=== PATIENT | male | born 1990 | race Caucasian/White ===

== ENCOUNTER 2018-11-01 12:09 | Emergency (ER) | payer MEDICAID ==
[~2018-11-01] VITALS: Ht 180.3 cm; Wt 61.4 kg
[~2018-11-01 12:09] MED LIST: LITH300C PO; METH4TAB3 PO; METH500T PO
[2018-11-01 12:49] VITALS: BP 129/81
[2018-11-01] MEDS ORDERED: LIDOcaine 1% w/epiNEPHrine 1:200,000 30ml vial IJ ONE (13:00)
[2018-11-01] MEDS ORDERED: LIDOcaine 1.5% w/epinephrine 1:200,000 5ml ampul IJ ONE (13:00)
[2018-11-01] MEDS ORDERED: MUPI22OI30 TOP (13:19)
[2018-11-01] MEDS ORDERED: DOXY100C43 PO (13:19)
== END 2018-11-01 13:25 | disposition home or self-care (01) ==
LOC: ER 12:10
DX: L98.8 Other specified disorders of the skin and subcutaneous tissue (principal); G89.29 Other chronic pain; F17.200 Nicotine dependence, unspecified, uncomplicated; F12.90 Cannabis use, unspecified, uncomplicated; Z59.0 Homelessness; Z56.0 Unemployment, unspecified; Z88.5 Allergy status to narcotic agent; Z88.8 Allergy status to other drugs, medicaments and biological substances; Z79.899 Other long term (current) drug therapy
CPT/HCPCS: 99283; J3490

== ENCOUNTER 2019-07-28 13:18 | Emergency (ER) | payer MEDICAID ==
[~2019-07-28] VITALS: Ht 181.6 cm; Wt 54.5 kg
[2019-07-28] MEDS ORDERED: HYDR-4353 PO (14:30)
[2019-07-28] MEDS ORDERED: IBUP-1986 PO (14:30)
[2019-07-28] MEDS ORDERED: ORPH100T2 PO (14:30)
[2019-07-28 15:14] VITALS: BP 123/72
== END 2019-07-28 14:50 | disposition home or self-care (01) ==
LOC: ER 13:19
DX: M54.16 Radiculopathy, lumbar region (principal); G89.29 Other chronic pain; F12.90 Cannabis use, unspecified, uncomplicated; Z59.0 Homelessness; Z56.0 Unemployment, unspecified; Z88.5 Allergy status to narcotic agent; Z79.899 Other long term (current) drug therapy
CPT/HCPCS: 99283

== ENCOUNTER 2019-09-17 11:27 | Emergency (ER) | payer MEDICAID ==
[~2019-09-17] VITALS: Ht 182.9 cm; Wt 57.0 kg
[~2019-09-17 11:27] MED LIST changes: +IBUP-1986 PO; +ORPH100T2 PO
[2019-09-17 11:35] VITALS: BP 115/75
[2019-09-17] MEDS ORDERED: ketorolac trometh inj. 60 MG/2 ML VIAL IM ONE (12:10)
[2019-09-17] MEDS ORDERED: LIDOcaine 5% patch TP ONE (12:10)
[2019-09-17] MEDS ORDERED: acetaminophen 325mg tablet PO ONE (12:10)
[2019-09-17] MEDS ORDERED: LIDO700A32 TOP (12:14)
== END 2019-09-17 12:49 | disposition home or self-care (01) ==
LOC: ER 11:28
DX: R07.81 Pleurodynia (principal); R05 Cough; G89.29 Other chronic pain; F41.9 Anxiety disorder, unspecified; F20.9 Schizophrenia, unspecified; F12.90 Cannabis use, unspecified, uncomplicated; Z60.2 Problems related to living alone; Z59.0 Homelessness; Z56.0 Unemployment, unspecified; Z88.5 Allergy status to narcotic agent; Z91.02 Food additives allergy status; Z79.899 Other long term (current) drug therapy
CPT/HCPCS: 71045; 96372; 99283; J1885

== ENCOUNTER 2020-01-19 22:30 | Emergency (ER) | payer MEDICAID ==
[~2020-01-19] VITALS: Ht 175.3 cm; Wt 48.5 kg
[~2020-01-19 22:30] MED LIST changes: +LIDO700A32 TOP
[2020-01-19 22:36] VITALS: BP 121/84
== END 2020-01-20 00:56 | disposition left against medical advice (07) ==
LOC: ER 22:31
DX: Z00.8 Encounter for other general examination (principal); Z53.21 Procedure and treatment not carried out due to patient leaving prior to being seen by health care provider

== ENCOUNTER 2020-05-06 16:01 | Emergency (ER) | payer MEDICAID ==
[~2020-05-06] VITALS: Ht 175.3 cm; Wt 59.0 kg
[2020-05-06 16:10] VITALS: BP 135/93
--- NOTE | 2020-05-06 16:37 | NUR ---
Patient seen and assessed by provider
== END 2020-05-06 16:39 | disposition home or self-care (01) ==
LOC: ER 16:02
DX: R19.7 Diarrhea, unspecified (principal); R53.83 Other fatigue; R53.1 Weakness; Z20.828 Contact with and (suspected) exposure to other viral communicable diseases; G89.29 Other chronic pain; F41.9 Anxiety disorder, unspecified; F20.9 Schizophrenia, unspecified; F12.90 Cannabis use, unspecified, uncomplicated; Z60.2 Problems related to living alone; Z56.0 Unemployment, unspecified; Z59.0 Homelessness; Z88.5 Allergy status to narcotic agent; Z88.8 Allergy status to other drugs, medicaments and biological substances; Z91.09 Other allergy status, other than to drugs and biological substances; Z79.899 Other long term (current) drug therapy
CPT/HCPCS: 36415; 99283; U0003

== ENCOUNTER 2020-08-31 20:28 | Emergency (ER) | payer MEDICAID ==
[~2020-08-31] VITALS: Ht 180.3 cm; Wt 53.6 kg
[2020-08-31 20:32] VITALS: BP 120/82
[2020-08-31] MEDS ORDERED: acetaminophen 325mg tablet PO ONE (21:10)
[2020-08-31] MEDS ORDERED: aspirin 325mg tablet PO ONE (21:10)
[2020-08-31] MEDS ORDERED: ketorolac trometh inj. 60 MG/2 ML VIAL IM ONE (21:10)
[2020-08-31] MEDS ORDERED: SUMAtriptan succ. 6 MG/0.5ml vial SQ ONE (21:10)
[2020-08-31] MEDS ORDERED: proCHLORperazine 10 MG/2 ml inj IM ONE (21:10)
[2020-08-31] MEDS ORDERED: ACET-812 PO (21:16)
[2020-08-31] MEDS ORDERED: PROC-8 PO (21:16)
[2020-08-31] MEDS ORDERED: SUMA100T PO (21:16)
== END 2020-08-31 21:49 | disposition home or self-care (01) ==
LOC: ER 20:29
DX: R51.9 Headache, unspecified (principal); R11.0 Nausea; H53.8 Other visual disturbances; G89.29 Other chronic pain; F41.9 Anxiety disorder, unspecified; F20.9 Schizophrenia, unspecified; F12.90 Cannabis use, unspecified, uncomplicated; Z60.2 Problems related to living alone; Z56.0 Unemployment, unspecified; Z59.0 Homelessness; Z88.5 Allergy status to narcotic agent; Z88.8 Allergy status to other drugs, medicaments and biological substances; Z91.018 Allergy to other foods; Z79.899 Other long term (current) drug therapy
CPT/HCPCS: 96372; 99284; J0780; J1885; J3030

== ENCOUNTER 2020-09-14 15:33 | Emergency (ER) | payer MEDICAID ==
[~2020-09-14] VITALS: Ht 180.3 cm; Wt 53.9 kg
[~2020-09-14 15:33] MED LIST changes: +ACET-812 PO; +PROC-8 PO; +SUMA100T PO
[2020-09-14 15:37] VITALS: BP 126/83
[2020-09-14] MEDS ORDERED: ketorolac tromethamine 15mg/ml inj. IM ONE (16:15)
--- NOTE | 2020-09-14 16:36 | NUR ---
Pt speaking with [place] police at this time
[2020-09-14] MEDS ORDERED: IBUP-1985 PO (16:42)
== END 2020-09-14 17:08 | disposition home or self-care (01) ==
LOC: ER 15:33
DX: S20.219A Contusion of unspecified front wall of thorax, initial encounter (principal); F41.9 Anxiety disorder, unspecified; F20.9 Schizophrenia, unspecified; G89.29 Other chronic pain; Z59.0 Homelessness; Z56.0 Unemployment, unspecified; Z88.5 Allergy status to narcotic agent; Z91.018 Allergy to other foods; Z79.899 Other long term (current) drug therapy; Y04.8XXA Assault by other bodily force, initial encounter; Y93.89 Activity, other specified; Y92.89 Other specified places as the place of occurrence of the external cause; Y99.8 Other external cause status
CPT/HCPCS: 70450; 70486; 71045; 96372; 99285; J1885

== ENCOUNTER 2020-12-04 04:59 | Emergency (ER) | payer MEDICAID ==
[~2020-12-04] VITALS: Ht 182.9 cm; Wt 59.1 kg
[~2020-12-04 04:59] MED LIST changes: +IBUP-1985 PO; -SUMA100T PO
[2020-12-04 05:06] VITALS: BP 124/66
[2020-12-04] MEDS ORDERED: LIDO700A32 TOP (05:20)
[2020-12-04] MEDS ORDERED: acetaminophen 325mg tablet PO ONE (05:20)
[2020-12-04] MEDS ORDERED: aspirin 325mg tablet PO ONE (05:20)
[2020-12-04] MEDS ORDERED: ACET-1025 PO (05:20)
[2020-12-04] MEDS ORDERED: ondansetron 4mg rapidly disintigrating tab PO ONE (05:20)
[2020-12-04] MEDS ORDERED: ketorolac trometh. 30mg/ml inj. IM ONE (05:20)
[2020-12-04] MEDS ORDERED: LIDOcaine 5% patch TP ONE (05:20)
[2020-12-04] MEDS ORDERED: cyclobenzaprine 10mg tablet PO ONE (05:20)
[2020-12-04] MEDS ORDERED: triamcinolone acetonide 40mg/ml inj IM ONE (05:20)
== END 2020-12-04 06:08 | disposition home or self-care (01) ==
LOC: ER 05:00
DX: G89.29 Other chronic pain (principal); M25.552 Pain in left hip; F41.9 Anxiety disorder, unspecified; F20.9 Schizophrenia, unspecified; F12.90 Cannabis use, unspecified, uncomplicated; Z60.2 Problems related to living alone; Z59.0 Homelessness; Z56.0 Unemployment, unspecified; Z88.5 Allergy status to narcotic agent; Z91.018 Allergy to other foods; Z79.899 Other long term (current) drug therapy
CPT/HCPCS: 96372; 99284; J1885; J3301

== ENCOUNTER 2021-01-06 22:56 | Emergency (ER) | payer MEDICAID ==
[~2021-01-06] VITALS: Ht 180.3 cm; Wt 55.9 kg
[2021-01-06 23:00] VITALS: BP 127/76
[2021-01-06] MEDS ORDERED: ketorolac trometh. 30mg/ml inj. IM ONE (23:10)
[2021-01-06] MEDS ORDERED: IBUP-1985 PO (23:14)
== END 2021-01-06 23:24 | disposition home or self-care (01) ==
LOC: ER 22:56
DX: M54.32 Sciatica, left side (principal); G89.29 Other chronic pain; F12.90 Cannabis use, unspecified, uncomplicated; Z56.0 Unemployment, unspecified; Z59.0 Homelessness; Z88.8 Allergy status to other drugs, medicaments and biological substances; Z91.018 Allergy to other foods; Z79.899 Other long term (current) drug therapy
CPT/HCPCS: 96372; 99283; J1885

== ENCOUNTER 2021-02-07 21:24 | Emergency (ER) | payer MEDICAID ==
[~2021-02-07] VITALS: Ht 180.3 cm; Wt 54.5 kg
[2021-02-07] MEDS ORDERED: CYCL-1 PO (22:47)
[2021-02-07] MEDS ORDERED: IBUP-1984 PO (22:47)
[2021-02-07] MEDS ORDERED: ketorolac tromethamine 15mg/ml inj. IM ONE (22:50)
[2021-02-07 23:01] VITALS: BP 112/74
--- NOTE | 2021-02-07 23:08 | NUR ---
Toradol IM given in left gluteus due to insufficient muscle mass on arms.
== END 2021-02-07 23:10 | disposition home or self-care (01) ==
LOC: ER 21:25
DX: M54.42 Lumbago with sciatica, left side (principal); M54.41 Lumbago with sciatica, right side; G89.29 Other chronic pain; F41.9 Anxiety disorder, unspecified; F20.9 Schizophrenia, unspecified; F12.90 Cannabis use, unspecified, uncomplicated; Z60.2 Problems related to living alone; Z59.0 Homelessness; Z56.0 Unemployment, unspecified; Z88.5 Allergy status to narcotic agent; Z91.018 Allergy to other foods; Z79.899 Other long term (current) drug therapy
CPT/HCPCS: 96372; 99283; J1885

== ENCOUNTER 2021-05-11 11:50 | Emergency (ER) | payer MEDICAID ==
[~2021-05-11 11:50] MED LIST changes: +CYCL-1 PO
[2021-05-11 12:03] VITALS: BP 121/65
== END 2021-05-11 14:48 | disposition home or self-care (01) ==
LOC: ER 11:51
DX: M25.561 Pain in right knee (principal); N63.0 Unspecified lump in unspecified breast; G89.29 Other chronic pain; F41.9 Anxiety disorder, unspecified; F20.9 Schizophrenia, unspecified; F12.90 Cannabis use, unspecified, uncomplicated; Z60.2 Problems related to living alone; Z56.0 Unemployment, unspecified; Z59.0 Homelessness; Z88.5 Allergy status to narcotic agent; Z88.8 Allergy status to other drugs, medicaments and biological substances; Z91.018 Allergy to other foods; Z79.899 Other long term (current) drug therapy
CPT/HCPCS: 73564; 99283

== ENCOUNTER 2021-12-21 09:11 | Emergency (ER) | payer MEDICAID ==
[~2021-12-21] VITALS: Ht 180.3 cm; Wt 58.3 kg
[~2021-12-21 09:11] MED LIST changes: +FAMO40TA73 PO
[2021-12-21 09:14] VITALS: BP 133/81
== END 2021-12-21 09:30 | disposition left against medical advice (07) ==
LOC: ER 09:12
DX: L02.511 Cutaneous abscess of right hand (principal); Z53.21 Procedure and treatment not carried out due to patient leaving prior to being seen by health care provider

== ENCOUNTER 2022-02-15 10:12 | Emergency (ER) | payer MEDICAID ==
[~2022-02-15] VITALS: Ht 180.3 cm; Wt 59.1 kg
[2022-02-15 10:17] VITALS: BP 128/82
[2022-02-15 12:36] LABS: BASOPHILS % (AUTO) 0.3 % (0-1); EOSINOPHILS % (AUTO) 0.4 % (0-6); HEMATOCRIT 39.7 % (42.0-52.0); HEMOGLOBIN 13.3 g/dl (14.0-17.9); LYMPHOCYTES # (AUTO) 1.6 X10'3 (1.1-4.8); LYMPHOCYTES % (AUTO) 18.6 % (21-51); MEAN CORPUSCULAR HEMOGLOBIN 27.9 PG (27.0-31.0); MEAN CORPUSCULAR HGB CONC 33.5 g/dL (33.0-36.5); MEAN CORPUSCULAR VOLUME 83.3 FL (78-98); MEAN PLATELET VOLUME 8.7 FL (7.4-10.4); MONOCYTES # (AUTO) 0.7 X10'3 (0-0.9); MONOCYTES % (AUTO) 8.4 % (2-12); NEUTROPHILS # (AUTO) 6.2 X10'3 (1.8-7.7); NEUTROPHILS % (AUTO) 72.3 % (42-75); PLATELET COUNT 158 X10'3 (140-440); RED BLOOD COUNT 4.77 X10'6 (4.70-6.10); RED CELL DISTRIBUTION WIDTH 13.4 % (11.5-14.5); WHITE BLOOD COUNT 8.6 X10'3 (4.5-11.0)
[2022-02-15 12:51] LABS: ALANINE AMINOTRANSFERASE 25 U/L (12-78); ALBUMIN 3.9 G/DL (3.4-5.0); ALBUMIN/GLOBULIN RATIO 1.2 (1.1-1.5); ALKALINE PHOSPHATASE 60 IU/L (46-116); ANION GAP 5 (8-16); ASPARTATE AMINO TRANSFERASE 18 U/L (10-37); BILIRUBIN,TOTAL 0.4 MG/DL (0.1-1.0); BLOOD UREA NITROGEN 7 MG/DL (7-18); BUN/CREATININE RATIO 11.5 (5.4-32.0); CALCIUM 8.7 MG/DL (8.5-10.1); CHLORIDE 105 MMOL/L (99-107); CREATININE 0.61 MG/DL (0.60-1.10); GLUCOSE 86 MG/DL (70-104); POTASSIUM 3.9 MMOL/L (3.5-5.1); SODIUM 140 MMOL/L (135-145); TOTAL CARBON DIOXIDE 29.9 MMOL/L (24-32); TOTAL PROTEIN 7.1 G/DL (6.4-8.2); eGFR > 90 ML/MIN
[2022-02-15 13:08] LABS: CLARITY,URINE CLEAR (Clear); COLOR,URINE YELLOW (Yellow); GLUCOSE, URINE NEGATIVE (Neg); KETONES,URINE NEGATIVE (Neg); LEUKOCYTE ESTERASE ,URINE NEGATIVE (Neg); NITRITES, URINE NEGATIVE (Neg); OCCULT BLOOD,URINE LARGE (Neg); PROTEIN,URINE NEGATIVE (Neg); UROBILINOGEN,URINE 0.2 E.U/dL (0.2-1.0)
[2022-02-15 13:10] LABS: UA COLLECTION TYPE NON-SPECIFIED
[2022-02-15 13:23] LABS: MUCUS STRANDS FEW /LPF (Neg); SQUAMOUS EPITHELIAL CELL,UR FEW /LPF (FEW)
[2022-02-15 13:24] LABS: BACTERIA,URINE FEW /HPF (Neg); WBC,URINE 0-4 /HPF (0-4)
== END 2022-02-15 14:08 | disposition left against medical advice (07) ==
LOC: ER 10:12
DX: R10.84 Generalized abdominal pain (principal); R30.0 Dysuria; R10.31 Right lower quadrant pain; R10.32 Left lower quadrant pain; G89.29 Other chronic pain; F12.90 Cannabis use, unspecified, uncomplicated; N18.9 Chronic kidney disease, unspecified; Z86.19 Personal history of other infectious and parasitic diseases; Z56.0 Unemployment, unspecified; Z59.00 Homelessness unspecified; Z88.8 Allergy status to other drugs, medicaments and biological substances; Z91.018 Allergy to other foods; Z87.442 Personal history of urinary calculi
CPT/HCPCS: 36415; 80053; 81001; 85025; 87491; 99283

== ENCOUNTER 2022-04-19 00:34 | Emergency (ER) | payer MEDICAID ==
[~2022-04-19] VITALS: Ht 175.3 cm; Wt 54.0 kg
[2022-04-19] MEDS ORDERED: LIDOcaine 1% W/epiNEPHrine 1:100,000 20ml vial SQ ONE (03:40)
[2022-04-19 04:04] VITALS: BP 112/69
== END 2022-04-19 04:07 | disposition home or self-care (01) ==
LOC: ER 00:34
DX: S90.852A Superficial foreign body, left foot, initial encounter (principal); G89.29 Other chronic pain; F41.9 Anxiety disorder, unspecified; F20.9 Schizophrenia, unspecified; F12.90 Cannabis use, unspecified, uncomplicated; Z56.0 Unemployment, unspecified; Z60.2 Problems related to living alone; Z59.00 Homelessness unspecified; Z88.5 Allergy status to narcotic agent; Z91.018 Allergy to other foods; Z88.8 Allergy status to other drugs, medicaments and biological substances; X58.XXXA Exposure to other specified factors, initial encounter; Y93.89 Activity, other specified; Y92.89 Other specified places as the place of occurrence of the external cause; Y99.8 Other external cause status
CPT/HCPCS: 96372; 99283; 99284

== ENCOUNTER 2023-06-15 01:09 | Emergency (ER) | payer MEDICAID ==
[~2023-06-15] VITALS: Ht 177.8 cm; Wt 59.1 kg
[2023-06-15 01:22] VITALS: TEMP 98.9
[2023-06-15 01:49] LABS: BASOPHILS # (AUTO) 0.1 X10'3 (0-0.2); BASOPHILS % (AUTO) 0.9 % (0-1); EOSINOPHILS # (AUTO) 0.2 X10'3 (0-0.9); EOSINOPHILS % (AUTO) 1.5 % (0-6); LYMPHOCYTES # (AUTO) 3.4 X10'3 (1.1-4.8); MEAN CORPUSCULAR HGB CONC 32.5 g/dL (33.0-36.5); MEAN CORPUSCULAR VOLUME 86.1 FL (78-98); MEAN PLATELET VOLUME 7.8 FL (7.4-10.4); MONOCYTES # (AUTO) 0.7 X10'3 (0-0.9); MONOCYTES % (AUTO) 5.9 % (2-12); NEUTROPHILS # (AUTO) 8.1 X10'3 (1.8-7.7); NEUTROPHILS % (AUTO) 64.7 % (42-75); PLATELET COUNT 242 X10'3 (140-440); RED BLOOD COUNT 4.99 X10'6 (4.70-6.10); RED CELL DISTRIBUTION WIDTH 14.2 % (11.5-14.5); WHITE BLOOD COUNT 12.5 X10'3 (4.5-11.0)
[2023-06-15 02:03] LABS: ALANINE AMINOTRANSFERASE 14 U/L (12-78); ALBUMIN 4.1 G/DL (3.4-5.0); ALBUMIN/GLOBULIN RATIO 1.1 (1.1-1.5); ALKALINE PHOSPHATASE 77 IU/L (46-116); AMYLASE 161 U/L (25-115); ANION GAP 5 (8-16); ASPARTATE AMINO TRANSFERASE 13 U/L (10-37); BILIRUBIN,TOTAL 0.4 MG/DL (0.1-1.0); BLOOD UREA NITROGEN 12 MG/DL (7-18); BUN/CREATININE RATIO 16.7 (10.0-20.0); CALCIUM 9.5 MG/DL (8.5-10.1); CHLORIDE 101 MMOL/L (99-107); CREATININE 0.72 MG/DL (0.60-1.10); GLUCOSE 95 MG/DL (70-104); LIPASE 949 U/L (73-393); POTASSIUM 3.7 MMOL/L (3.5-5.1); SODIUM 137 MMOL/L (135-145); TOTAL CARBON DIOXIDE 30.6 MMOL/L (24-32); TOTAL PROTEIN 7.7 G/DL (6.4-8.2); eCRCL 123 ML/MIN; eGFR > 90 ML/MIN
[2023-06-15] MEDS ORDERED: morphine 4 MG/ML inj SYRINge IV ONE (03:15)
[2023-06-15] MEDS ORDERED: normal saline 1000ML IV soln IVB ONE (03:15)
[2023-06-15] MEDS ORDERED: ondansetron/PF 4mg/2ml inj IV ONE (03:15)
[2023-06-15] MEDS ORDERED: HYDR-3965 PO (03:23)
[2023-06-15 03:42] LABS: BILIRUBIN,URINE NEGATIVE (Neg); COLOR,URINE YELLOW (Yellow); GLUCOSE, URINE NEGATIVE (Neg); KETONES,URINE NEGATIVE (Neg); LEUKOCYTE ESTERASE ,URINE SMALL (Neg); NITRITES, URINE NEGATIVE (Neg); OCCULT BLOOD,URINE NEGATIVE (Neg); PH,URINE 5.5 (4.8-8.0); PROTEIN,URINE NEGATIVE (Neg); UROBILINOGEN,URINE 0.2 E.U/dL (0.2-1.0)
[2023-06-15 03:44] LABS: UA COLLECTION TYPE CLN CATCH MIDSTREAM
[2023-06-15 03:51] LABS: CLARITY,URINE SLIGHTLY CLOUDY (Clear)
[2023-06-15 03:52] LABS: BACTERIA,URINE FEW /HPF (Neg); RBC,URINE 0-2 /HPF (0-2); SQUAMOUS EPITHELIAL CELL,UR FEW /LPF (FEW); TRANSITIONAL EPI CELLS,URINE FEW /HPF; WBC CLUMPS,URINE FEW /HPF (NEGATIVE)
[2023-06-15 04:15] VITALS: BP 126/75; PULSE 71; O2SAT 97
--- NOTE | 2023-06-15 04:18 | NUR ---
RN went to administer Zofran medication. Patient stated "I have already taken this medication about an hour ago". RN asked where he obtained the medication and what dose. Patient stated " I took Zofran from my personal bag" and he took "8 mg" of Zofran. Patient denied taking any other medication from personal bag. Morphine administered as ordered. See EMAR for more information.
[2023-06-15 04:43] VITALS: RESP 14
== END 2023-06-15 05:39 | disposition home or self-care (01) ==
LOC: ER 01:10
DX: K85.90 Acute pancreatitis without necrosis or infection, unspecified (principal)
CPT/HCPCS: 36415; 80053; 81001; 82150; 83690; 84145; 85025; 87088; 96374; 99283; J2270; J7030

== ENCOUNTER 2024-06-14 20:02 | Emergency (ER) | payer MEDICAID, OTHER ==
[~2024-06-14] VITALS: Ht 177.8 cm; Wt 57.0 kg
[2024-06-14] MEDS: ketorolac trometh 30MG/ML vial 30 MG/ML VIAL IM STA (20:40)
[2024-06-14 21:20] VITALS: BP 118/70; PULSE 78; RESP 16; TEMP 97.7; O2SAT 97
== END 2024-06-14 21:22 | disposition home or self-care (01) ==
LOC: ER 20:03
DX: M54.32 Sciatica, left side (principal); G89.29 Other chronic pain; M54.9 Dorsalgia, unspecified; F41.9 Anxiety disorder, unspecified; F12.90 Cannabis use, unspecified, uncomplicated; F15.90 Other stimulant use, unspecified, uncomplicated; Z88.8 Allergy status to other drugs, medicaments and biological substances; Z91.018 Allergy to other foods; Z59.00 Homelessness unspecified; Z56.0 Unemployment, unspecified; Z60.2 Problems related to living alone
CPT/HCPCS: 96372; 99283; J1885

== ENCOUNTER 2024-08-25 02:55 | Emergency (ER) | payer MEDICAID ==
[~2024-08-25] VITALS: Ht 175.3 cm; Wt 57.5 kg
[2024-08-25 03:00] VITALS: BP_SYST 127; PULSE 91; RESP 16; TEMP 97.8; O2SAT 98
[2024-08-25 03:21] LABS: BASOPHILS # (AUTO) 0.1 X10'3 (0-0.2); BASOPHILS % (AUTO) 0.8 % (0-1); EOSINOPHILS # (AUTO) 0.2 X10'3 (0-0.9); EOSINOPHILS % (AUTO) 2.9 % (0-6); HEMATOCRIT 41.5 % (42.0-52.0); HEMOGLOBIN 13.9 g/dl (14.0-17.9); LYMPHOCYTES # (AUTO) 3.1 X10'3 (1.1-4.8); LYMPHOCYTES % (AUTO) 43.9 % (21-51); MEAN CORPUSCULAR HEMOGLOBIN 28.5 PG (27.0-31.0); MEAN CORPUSCULAR HGB CONC 33.4 g/dL (33.0-36.5); MEAN CORPUSCULAR VOLUME 85.4 FL (78-98); MEAN PLATELET VOLUME 8.3 FL (7.4-10.4); MONOCYTES # (AUTO) 0.5 X10'3 (0-0.9); MONOCYTES % (AUTO) 7.2 % (2-12); NEUTROPHILS # (AUTO) 3.2 X10'3 (1.8-7.7); NEUTROPHILS % (AUTO) 45.2 % (42-75); PLATELET COUNT 210 X10'3 (140-440); RED BLOOD COUNT 4.86 X10'6 (4.70-6.10); RED CELL DISTRIBUTION WIDTH 14.3 % (11.5-14.5)
[2024-08-25 03:35] LABS: ALANINE AMINOTRANSFERASE 23 U/L (12-78); ALBUMIN 3.9 G/DL (3.4-5.0); ALBUMIN/GLOBULIN RATIO 1.4 (1.1-1.5); ALKALINE PHOSPHATASE 58 IU/L (46-116); ANION GAP 6 (8-16); ASPARTATE AMINO TRANSFERASE 12 U/L (10-37); BILIRUBIN,TOTAL 0.4 MG/DL (0.1-1.0); BLOOD UREA NITROGEN 14 MG/DL (7-18); BUN/CREATININE RATIO 20.9 (10.0-20.0); CALCIUM 8.4 MG/DL (8.5-10.1); CHLORIDE 104 MMOL/L (99-107); CREATININE 0.67 MG/DL (0.60-1.10); GLUCOSE 102 MG/DL (70-104); POTASSIUM 4.2 MMOL/L (3.5-5.1); SODIUM 138 MMOL/L (135-145); TOTAL CARBON DIOXIDE 28.2 MMOL/L (24-32); TOTAL PROTEIN 6.7 G/DL (6.4-8.2); eCRCL 126 ML/MIN; eGFR > 90 ML/MIN
[2024-08-25 03:37] LABS: LIPASE > 375 U/L (16-77)
== END 2024-08-25 05:56 | disposition left against medical advice (07) ==
LOC: ER 02:55
DX: R10.84 Generalized abdominal pain (principal); Z88.0 Allergy status to penicillin; Z88.8 Allergy status to other drugs, medicaments and biological substances; Z53.21 Procedure and treatment not carried out due to patient leaving prior to being seen by health care provider
CPT/HCPCS: 36415; 80053; 83690; 85025

== ENCOUNTER 2024-11-15 01:58 | Emergency (ER) | payer MEDICAID ==
[~2024-11-15] VITALS: Ht 180.3 cm; Wt 51.0 kg
[2024-11-15 02:01] VITALS: BP 113/50; PULSE 74; RESP 14; O2SAT 99
[2024-11-15] MEDS ORDERED: AMOX500C2 PO (02:19)
[2024-11-15] MEDS ORDERED: KETO10TA2 PO (02:19)
[2024-11-15 02:22] VITALS: TEMP 98.8
[2024-11-15] MEDS: ibuprofen tablet 400 MG TABLET PO ONE (02:28)
[2024-11-15] MEDS: acetaminophen 325mg tablet PO ONE (02:28)
[2024-11-15] MEDS: amoxicillin 250mg capsule PO ONE (02:29)
== END 2024-11-15 02:40 | disposition home or self-care (01) ==
LOC: ER 01:58
DX: K08.89 Other specified disorders of teeth and supporting structures (principal); F20.9 Schizophrenia, unspecified; F41.9 Anxiety disorder, unspecified; F12.90 Cannabis use, unspecified, uncomplicated; F15.90 Other stimulant use, unspecified, uncomplicated; Z88.5 Allergy status to narcotic agent; Z91.018 Allergy to other foods; Z88.8 Allergy status to other drugs, medicaments and biological substances
CPT/HCPCS: 99284

== ENCOUNTER 2024-12-08 00:10 | Emergency (ER) | payer MEDICAID ==
[~2024-12-08] VITALS: Ht 175.3 cm; Wt 57.9 kg
[~2024-12-08 00:10] MED LIST changes: -ACET-812 PO; -CYCL-1 PO; -FAMO40TA73 PO; -IBUP-1985 PO; -IBUP-1986 PO; +KETO10TA2 PO; -LIDO700A32 TOP; -LITH300C PO; -METH4TAB3 PO; -METH500T PO; -ORPH100T2 PO; -PROC-8 PO
[2024-12-08 00:19] VITALS: BP 126/76; PULSE 75; O2SAT 95
[2024-12-08 01:45] VITALS: TEMP 98
[2024-12-08 01:48] VITALS: RESP 18
[2024-12-08] MEDS: ketorolac trometh 15mg/ml vial 15 MG/ML ML IM ONE (01:48)
== END 2024-12-08 02:06 | disposition home or self-care (01) ==
LOC: ER 00:10
DX: S83.92XA Sprain of unspecified site of left knee, initial encounter (principal); F41.9 Anxiety disorder, unspecified; F12.90 Cannabis use, unspecified, uncomplicated; F15.90 Other stimulant use, unspecified, uncomplicated; F20.9 Schizophrenia, unspecified; G89.29 Other chronic pain; Z88.5 Allergy status to narcotic agent; Z88.8 Allergy status to other drugs, medicaments and biological substances; Z79.899 Other long term (current) drug therapy; Z59.00 Homelessness unspecified; Z87.11 Personal history of peptic ulcer disease; Z87.19 Personal history of other diseases of the digestive system
CPT/HCPCS: 73564; 96372; 99283; J1885; A6449

== ENCOUNTER 2025-01-27 21:41 | Emergency (ER) | payer MEDICAID, OTHER ==
[~2025-01-27] VITALS: Ht 177.8 cm; Wt 55.1 kg
[2025-01-28 00:54] VITALS: BP 118/78; PULSE 90; RESP 19; TEMP 98.6; O2SAT 99
== END 2025-01-28 00:55 | disposition home or self-care (01) ==
LOC: ER 21:41
DX: S63.502A Unspecified sprain of left wrist, initial encounter (principal); F12.90 Cannabis use, unspecified, uncomplicated; F20.9 Schizophrenia, unspecified; Z88.5 Allergy status to narcotic agent; W19.XXXA Unspecified fall, initial encounter; Y93.89 Activity, other specified; Y92.89 Other specified places as the place of occurrence of the external cause; Y99.8 Other external cause status
CPT/HCPCS: 29125; 73110; 99283

== ENCOUNTER 2025-04-07 03:32 | Emergency (ER) | payer MEDICAID ==
[~2025-04-07] VITALS: Ht 177.8 cm; Wt 54.4 kg
[2025-04-07 03:39] VITALS: BP 132/90; PULSE 95; TEMP 98.4; O2SAT 99
[2025-04-07] MEDS ORDERED: HYDR-3973 PO (04:37)
[2025-04-07] MEDS ORDERED: IBUP-1986 PO (04:37)
--- NOTE | 2025-04-07 04:38 | Physician Documentation ---
History of Present Illness ~ Chief Complaint: Hip pain Stated Complaint: HIP PAIN Time Seen by MD: 04:12 Primary Medical Doctor: None Source: patient Mode of Arrival: POV Exam Limitations: no limitations HPI Chief Complaint: Right buttock pain radiating down the leg Caveat: None Independent Historians: None History of Present Illness: Patient is a 34-year-old man who comes in complaining of recurrent sciatica. Patient states that pain originates in the right buttock and radiates down the back of the leg all the way down of the ankle. Patient denies any recent trauma or injury. Patient denies any fever. Patient denies any abdominal pain. No bowel incontinence, no urinary retention, no burning with urination. Pain began approximately 6 hours prior to arrival. Review of systems: All systems were reviewed and are negative except for what is indicated in the history of present illness. Past Medical History: Sciatica Past Surgical History: None Social History: Tobacco use, marijuana use Medications: Reviewed as documented Nursing Notes Allergies: Reviewed as documented in Nursing Notes Medication Reconciliation Allergies: Coded Allergies: codeine (Verified Allergy, Unknown, 01/27/25) grapefruit (Unverified Allergy, Unknown, 11/15/24) quetiapine fumarate (Unverified Allergy, Unknown, 01/27/25) Uncoded Allergies: JALAPENO (Allergy, Unknown, 08/06/15) Scheduled Ibuprofen (Ibuprofen), 1 TAB PO Q8H Ketorolac Tromethamine (Ketorolac Tromethamine), 1 TAB PO Q8H Past Medical History Past Medical History: Gastritis, Pancreatitis, Peptic Ulcer Disease, Chronic Back Pain, Anxiety, Schizophrenia Past Surgical History: no surgical history Alcohol Use: None Drug Use: marijuana, methamphetamine Lives with: Alone Lives In: Homeless Occupation: unemployed Review of Systems All Other Systems at this time: Reviewed and Negative ROS Patient denies any other acute symptoms other than above. All other systems are negative Physical Exam Physical Exam Vital Signs: RN Vital Signs have been reviewed: Yes, Temperature: 98.4, Source: Temporal, Heart Rate: 95, Respiratory Rate: 18, BP: 132/90, Pulse Oximetry: 99, Weight: 54.400 Oxygen Flow Rate: 0 Pulse Oximetry Reflects: adequate oxygenation Physical Exam General Appearance: The stress Neck: supple, normal ROM, trachea midline Pulmonary: No respiratory distress, CTA, BS equal Cardiac: RRR, no murmur, rub or gallop, GI: nondistended, soft, nontender, normal bowel sounds, no guarding, no rebound Back: Outwardly normal-appearing, no midline tenderness Extremities: normal ROM, no swelling, non-tender Skin: intact, dry, warm, no rashes Neuro: AAOx3, speech is clear, no focal motor weakness, hip flexions 5/5 bilaterally, leg extension is 5/5 bilaterally, dorsiflexion and plantar flexion bilaterally 5/5 Psych: normal affect, good eye contact, no apparent hallucination, normal speech Progress Results/Orders Results/Orders Completed Orders - BENJAMIN SCHRADER MD Triamcinolone Acet 40mg/Ml Inj (Kenalog- (04/07/25 04:35) Ketorolac Trometh 15mg/Ml Vial (Toradol (04/07/25 04:35) Vital Signs 04/07/25 04/07/25 03:39 04:42 Temp 98.4 Pulse 95 Resp 18 16 B/P (MAP) 132/90 Pulse Ox 99 O2 Flow Rate 0 Medical Decision Making Findings Differential diagnosis includes but is not limited to: Sciatica, radicular pain, cauda equina syndrome, spinal stenosis Emergency department course/medical decision-making: Patient presents with symptoms consistent with acute sciatica. Patient states that he has had this before. Patient is given Kenalog 40 mg IM and Toradol 15 mg IM. Patient will be given a prescription for ibuprofen and [place]ze as needed. Patient is instructed to follow up with the primary care doctor. There was no evidence of a medical or surgical emergency. The patient is neurologically intact and does not require emergent MRI imaging. Patient is stable for discharge. Departure Time of Disposition: 04:36 Impression: Primary Impression: Sciatica, right side Condition: Stable Discharge Instructions: Sciatica, [id number] Prescriptions Ibuprofen (Ibuprofen) 800 Mg Tablet 1 TAB PO Q8H for PAIN for 10 Days, #30 TAB Prov: BENJAMIN SCHRADER MD 04/07/25 Education Educated: Patient Educated regarding: diagnosis, treatment, need for follow up Signature Scribe Signature: No scribe Attestation: No scribe BENJAMIN SCHRADER MD Apr 07, 2025 04:38
[2025-04-07 04:42] VITALS: RESP 16
[2025-04-07] MEDS: ketorolac trometh 15mg/ml vial 15 MG/ML ML IM ONE (04:42)
[2025-04-07] MEDS: triamcinolone acetonide 40mg/ml inj IM ONE (04:42)
== END 2025-04-07 04:49 | disposition home or self-care (01) ==
LOC: ER 03:32
DX: M54.31 Sciatica, right side (principal); F20.9 Schizophrenia, unspecified; F41.9 Anxiety disorder, unspecified; F12.90 Cannabis use, unspecified, uncomplicated; F15.90 Other stimulant use, unspecified, uncomplicated; Z88.5 Allergy status to narcotic agent
CPT/HCPCS: 96372; 99284; J1885; J3301

== ENCOUNTER 2025-04-14 13:51 | Inpatient (IN) | payer MEDICAID ==
[~2025-04-14] VITALS: Ht 180.3 cm; Wt 53.4 kg
[~2025-04-14 13:51] MED LIST changes: +IBUP-1986 PO
[2025-04-14 14:31] LABS: BASOPHILS # (AUTO) 0.1 X10'3 (0-0.2); BASOPHILS % (AUTO) 0.8 % (0-1); EOSINOPHILS # (AUTO) 0.1 X10'3 (0-0.9); EOSINOPHILS % (AUTO) 1.4 % (0-6); HEMATOCRIT 44.7 % (42.0-52.0); HEMOGLOBIN 15.2 g/dl (14.0-17.9); LYMPHOCYTES # (AUTO) 2.3 X10'3 (1.1-4.8); MEAN CORPUSCULAR HEMOGLOBIN 28.5 PG (27.0-31.0); MEAN CORPUSCULAR HGB CONC 33.9 g/dL (33.0-36.5); MEAN CORPUSCULAR VOLUME 84.2 FL (78-98); MEAN PLATELET VOLUME 8.5 FL (7.4-10.4); MONOCYTES # (AUTO) 0.6 X10'3 (0-0.9); MONOCYTES % (AUTO) 8.2 % (2-12); NEUTROPHILS # (AUTO) 4.8 X10'3 (1.8-7.7); NEUTROPHILS % (AUTO) 60.6 % (42-75); PLATELET COUNT 216 X10'3 (140-440); RED BLOOD COUNT 5.31 X10'6 (4.70-6.10); RED CELL DISTRIBUTION WIDTH 13.8 % (11.5-14.5); WHITE BLOOD COUNT 7.9 X10'3 (4.5-11.0)
[2025-04-14 14:49] LABS: ALANINE AMINOTRANSFERASE 19 U/L (12-78); ALBUMIN 4.2 G/DL (3.4-5.0); ALBUMIN/GLOBULIN RATIO 1.3 (1.1-1.5); ALKALINE PHOSPHATASE 67 IU/L (46-116); ANION GAP 6 (8-16); ASPARTATE AMINO TRANSFERASE 13 U/L (10-37); BILIRUBIN,TOTAL 0.3 MG/DL (0.1-1.0); BLOOD UREA NITROGEN 11 MG/DL (7-18); BUN/CREATININE RATIO 12.2 (10.0-20.0); CALCIUM 9.2 MG/DL (8.5-10.1); CHLORIDE 101 MMOL/L (99-107); GLUCOSE 109 MG/DL (70-104); LIPASE 119 U/L (16-77); POTASSIUM 4.1 MMOL/L (3.5-5.1); SODIUM 138 MMOL/L (135-145); TOTAL CARBON DIOXIDE 31.2 MMOL/L (24-32); TOTAL PROTEIN 7.5 G/DL (6.4-8.2); eCRCL 87 ML/MIN; eGFR > 90 ML/MIN
--- NOTE | 2025-04-14 15:18 | Physician Documentation ---
History of Present Illness Chief Complaint: Abdominal Pain Stated Complaint: SIDE PAIN Time Seen by MD: 15:02 Primary Medical Doctor: None HPI 34-year-old male presenting with abdominal pain that has been ongoing for the past couple of weeks but has significantly worsened today. He states that he has a history of chronic pancreatitis and it appears like this has flared up again. He reports a sharp stabbing pain in his right abdomen which radiates to his back. He has also been nauseated and did vomit. Patient reports that he is a former drug user but has been clean for the past month. Denies any fever, chills or any other associated symptoms. Medication Reconciliation Allergies: Coded Allergies: codeine (Verified Allergy, Unknown, 01/27/25) grapefruit (Unverified Allergy, Unknown, 11/15/24) quetiapine fumarate (Unverified Allergy, Unknown, 01/27/25) Uncoded Allergies: JALAPENO (Allergy, Unknown, 08/06/15) Scheduled Ibuprofen (Ibuprofen), 1 TAB PO Q8H Ketorolac Tromethamine (Ketorolac Tromethamine), 1 TAB PO Q8H Past Medical History Past Medical History: Gastritis, Pancreatitis, Peptic Ulcer Disease, Chronic Back Pain, Anxiety, Schizophrenia Past Surgical History: no surgical history Alcohol Use: None Drug Use: marijuana, methamphetamine Lives with: Alone Lives In: Homeless Occupation: unemployed Review of Systems All Other Systems at this time: Reviewed and Negative Physical Exam Vital Signs: Temperature: 98.7, Source: Temporal, Heart Rate: 72, Respiratory Rate: 15, BP: 125/85, Pulse Oximetry: 98, Weight: 53.400 Physical Exam I have reviewed the triage vitals. CONST: Well developed and well nourished. In no acute distress HENT: Head Atraumatic EYES: Pupils are equal, round and reactive to light. Normal conjunctiva NECK: Normal range of motion. Supple. CARDIO: Normal rate and regular rhythm. No murmurs, rubs, or gallops. S1, S2. PULM/CHEST: No respiratory distress. Lungs clear to auscultation. No wheeze ABD: Soft. Tenderness to palpation over the right upper quadrant with guarding in this area.. Nondistended. Bowel sounds normal. MSK: No edema. No deformity. NEURO: Alert and oriented to person, place and time. Moving all extremities SKIN: Warm and dry. PSYCH: Normal mood and affect. Good eye contact. Progress Results/Orders Results/Orders Orders - SAMANTHA LUNDY MD Ct Abdomen Pelvis (04/14/25 15:14) Morphine 4mg/Ml Inj. (Morphine Inj.) (04/14/25 15:15) Ondansetron Inj. (Zofran 4mg/2ml Vial) (04/14/25 15:15) Normal Saline 1000ml (Sodium Chloride 10 (04/14/25 15:15) Vital Signs 04/14/25 13:59 Temp 98.7 Pulse 72 Resp 15 B/P (MAP) 125/85 Pulse Ox 98 Laboratory Tests Test 04/14/25 14:12 White Blood Count 7.9 Red Blood Count 5.31 Hemoglobin 15.2 Hematocrit 44.7 Mean Corpuscular Volume 84.2 Mean Corpuscular Hemoglobin 28.5 Mean Corpuscular Hemoglobin Concent 33.9 Red Cell Distribution Width 13.8 Platelet Count 216 Mean Platelet Volume 8.5 Neutrophils (%) (Auto) 60.6 Lymphocytes (%) (Auto) 29.0 Monocytes (%) (Auto) 8.2 Eosinophils (%) (Auto) 1.4 Basophils (%) (Auto) 0.8 Neutrophils # (Auto) 4.8 Lymphocytes # (Auto) 2.3 Monocytes # (Auto) 0.6 Eosinophils # (Auto) 0.1 Basophils # (Auto) 0.1 CBC Comment Sodium Level 138 Potassium Level 4.1 Chloride Level 101 Carbon Dioxide Level 31.2 Anion Gap 6 L Blood Urea Nitrogen 11 Creatinine 0.90 Estimated GFR/1.73 m2 > 90 BUN/Creatinine Ratio 12.2 Glucose Level 109 H Calcium Level 9.2 Total Bilirubin 0.3 Aspartate Amino Transf (AST/SGOT) 13 Alanine Aminotransferase (ALT/SGPT) 19 Alkaline Phosphatase 67 Total Protein 7.5 Albumin 4.2 Globulin 3.3 Albumin/Globulin Ratio 1.3 Lipase 119 H Chemistry Comments Departure Disposition: 09 ADMITTED INPATIENT Admitted to Inpatient Unit: to hospitalist Admission Level of Care: Med/Surg Impression: Primary Impression: Acute on chronic pancreatitis Referrals: NO PRIMARY CARE PROVIDER (PCP) SAMANTHA LUNDY MD Apr 14, 2025 15:18
[2025-04-14] MEDS ORDERED: iohexol 300mg/ml 100ml inj. ONE (15:21)
--- NOTE | 2025-04-14 15:41 | RADIOLOGY REPORT ---
Exam: DI ABDOMEN,SINGLE VIEW(KUB) Indication: constipation Comparison: None Technique: 2 radiographic views of the abdomen. Findings: Nonspecific bowel-gas pattern. Moderate stool in the rectum. There is no definite evidence for pneumoperitoneum. No abnormal calcifications noted. Impression: Nonspecific bowel-gas pattern. Moderate stool in the rectum.
[2025-04-14] MEDS: morphine 4 MG/ML inj SYRINge IV ONE (15:54)
[2025-04-14] MEDS: ondansetron/PF 4mg/2ml inj IV ONE (15:54)
[2025-04-14] MEDS: normal saline 1000ml 1,000 ML IV ONE ×2 (15:58→17:40)
--- NOTE | 2025-04-14 16:03 | RADIOLOGY REPORT ---
Exam: CT CT ABDOMEN PELVIS W/ IV CONTRAST History: abd pain w/ elevated lipase COMPARISON: None Technique: Multidetector spiral CT of the abdomen and pelvis was performed from lung bases to pubic s ymphysis. Intravenous contrast was administered during this examination. Portal venous imaging was obtained. Axial, coronal and sagittal multiplanar reformats were performed by the technologist on a separate workstation. Radiation Dose : 1. Abdomen/Pelvis: CTDIvol 5.4 mGy, DLP 277 mGy*cm. CONTRAST: Type of contrast: Isovue Contrast injected: 100 ml Findings: Lung Bases: No acute or significant lung base finding. Normal heart size. No pleural or pericardial effusion. Liver: The liver is normal in size. No focal lesions. Normal hepatic vascular enhancement. Gallbladder and Biliary Tree: Unremarkable Spleen: Unremarkable Pancreas: The pancreas is normal in appearance without focal lesions or abnormal enhancement. Adrenal Glands: Unremarkable Kidneys: No hydronephrosis. Bladder: Unremarkable Bowel: The stomach is grossly normal in appearance. Small bowel and colon are normal in caliber and d istribution. Normal appendix is visualized in the right lower quadrant without findings of appendici tis. Ascites: Absent Lymphadenopathy: No mesenteric, retroperitoneal or periportal lymphadenopathy. Abdominal Wall and Mesentery: Unremarkable. Vasculature: The visualized abdominal aorta is normal in size and caliber. Abdominal and pelvic vess els demonstrate normal enhancement. Pelvic Organs: Unremarkable Musculoskeletal: No aggressive focal bony lesions, acute fractures or dislocation. IMPRESSION: 1. No acute abdominal or pelvic finding. Radiation optimization: All CT scans at this facility use at least one of these dose optimization norman hniques: automated exposure control mA and/or kV adjustment per patient size (includes targeted exam s where dose is matched to clinical indication) or iterative reconstruction.
[2025-04-14] MEDS: LORazepam 2 mg/ml vial ONE (16:10)
[2025-04-14 16:22] LABS: BILIRUBIN,URINE NEGATIVE (Neg); CLARITY,URINE CLEAR (Clear); COLOR,URINE STRAW (Yellow); GLUCOSE, URINE NEGATIVE (Neg); KETONES,URINE NEGATIVE (Neg); LEUKOCYTE ESTERASE ,URINE NEGATIVE (Neg); NITRITES, URINE NEGATIVE (Neg); OCCULT BLOOD,URINE NEGATIVE (Neg); PROTEIN,URINE NEGATIVE (Neg); UROBILINOGEN,URINE 0.2 E.U/dL (0.2-1.0)
[2025-04-14 16:30] LABS: UA COLLECTION TYPE URINAL
[2025-04-14] MEDS ORDERED: acetaminophen 325mg tablet PO PRN (17:20)
[2025-04-14] MEDS ORDERED: magnesium sulf-water 2g/50mL 50 ML IV PRN (17:20)
[2025-04-14] MEDS ORDERED: potassium Cl 20 mEq SR tablet PO PRN ×2 (17:20)
[2025-04-14] MEDS ORDERED: potassium Cl 40MEQ/1/2NS 520ml 520 ML IV PRN (17:20)
[2025-04-14] MEDS ORDERED: morphine 2 MG/ML inj. syringe IV PRN (17:20)
[2025-04-14] MEDS ORDERED: mag hydrox/Alum hydrox/simeth 30ml oral suspension PO PRN (17:20)
[2025-04-14] MEDS ORDERED: magnesium sulf-water 4G/100mL 100 ML IV PRN (17:20)
[2025-04-14] MEDS ORDERED: magnesium Cl slow-release 64mg tablet PO PRN (17:20)
[2025-04-14] MEDS ORDERED: HYDROcodone/acetaminophen 5mg/325mg tablet PO PRN (17:20)
[2025-04-14] MEDS ORDERED: ondansetron/PF 4mg/2ml inj IV PRN (17:20)
[2025-04-14] MEDS ORDERED: NO HOME MEDS (18:47)
[2025-04-14] MEDS ORDERED: nicotine 21mg patch - 24 hr TD ONE (19:35)
[2025-04-14] MEDS ORDERED: LORazepam 2 mg/ml vial IV PRN (19:35)
[2025-04-14] MEDS ORDERED: haloperidol lactate 5mg/ml inj IM PRN (19:35)
[2025-04-14] MEDS ORDERED: haloperidol 5mg tablet PO PRN (19:35)
--- NOTE | 2025-04-14 19:36 | HISTORY AND PHYSICAL-Residence ---
History & Physical Providers to CC Resident Creating Document: EVERETT MARS, RES ~ History of Present Illness Primary Medical Doctor: JOHN Reason for Admit\Complaint: Abdominal pain History of Present Illness PCP: JOHN. 34 years old male patient with past medical history of pancreatitis, substance and alcohol use disorder, came to the hospital with chief complaint of abdominal pain. The patient states that his abdominal pain gradually started and progressed since in the last two weeks. The patient reports that during the last three days his pain was getting worse, scaly need as 9/10 in intensity localized in the level of the epigastrium without radiation, with mild improvement when leaning to the side. As per patient the pain is worse after eat any type of foot. The patient currently denies any chest pain, shortness of breath, urinary or intestinal symptoms. Allergies: Coded Allergies: codeine (Verified Allergy, Unknown, 01/27/25) grapefruit (Unverified Allergy, Unknown, 11/15/24) quetiapine fumarate (Unverified Allergy, Unknown, 01/27/25) Uncoded Allergies: JALAPENO (Allergy, Unknown, 08/06/15) Home Medications Home Medications Active Reported No Home Medications (Home Med List) Each Past Medical History Past Medical History Pancreatitis diagnosed four years ago. Past Surgical History Surgical History Comment None Past Social History Smoking: Cigarettes, Less than 1 pack/day (As per patient he smokes half a pack a day since he was 8 years old.) Alcohol Use: Sober (As per patient he quit one week ago. He used to drink six pack daily drinking last during the last year.) Drug Use: Marijuana, Methamphetamine Lives with: Alone Lives In: Homeless (As per patient currently living in [facility] Occupation: unemployed ROS All Other Systems: Reviewed and Negative Exam Vitals: Vital Signs Date Time Temp Pulse Resp B/P (MAP) Pulse Ox O2 Delivery O2 Flow Rate FiO2 04/14/25 17:43 53 16 97/65 (76) 99 0 04/14/25 15:18 98.7 Physical exam: General: Well alert, well oriented, not confused, not agitated, not in acute distress, well cooperated during the physical. HEENT: Conjunctive are pink, sclerae clear, no icterus, pupil is equal in both sides, reactive to light, no ear discharge, no pharyngeal erythema or an edema. Neck: Supple, no JVD, no lymphadenopathy and thyromegaly. Chest: Equal air entry on both lungs, no additional sounds no rhonchi no wheezing at the moment. Cardiovascular: S1-S2 regular sinus rhythm and, regular rate, no gallops, no rubs, no murmurs Abdomen: No visible peristalsis, Bowel sounds present on auscultation, soft, tenderness at the level of the epigastrium, no guarding, no rigidity. Extremities: No obvious deformities, no pitting edema bilaterally, capillary refill intact, peripheral pulsations are intact on both sides Central Nervous System: No focal neurological deficits, no motor or sensory weakness in all 4 extremities, could move all 4 extremities, 2+ deep tendon reflexes, negative Babinski. Musculoskeletal: No joint swelling, deformities, inflammations, and no scoliosis and back tenderness Skin: Warm and dry. Diagnostic Data Last Recorded Lab Results: 04/14/25 1412 04/14/25 1412 Counseling Services Smoking & Tobacco Cessation: 3-10 Minutes (I spent 12 minutes discussing smoking cessation with the patient including the risk of continuing to smoke: Lung cancer, stroke, heart attack, poor wound healing, increased in fascial wrinkling, cigarette smoke also leads a foul smell on clothing and fabrics, risk of MRSA skin infections. The expense of smoking cigarettes and how cigarettes have been scientifically engineered to be as addictive as humanly possible. The patient wants a nicotine patch at this time.) Advance Care Planning Advanced Care plannin - 30 Minutes (I spent a total of 17 minutes on reviewing various resuscitative measures/ACP with the patient at the time of admission. The patient has decided on a full code status.) Additional Plan Assessment and plan: 34-year-old male patient came to the hospital with chief complaint of abdominal pain. Abdominal pain: Possible acute pancreatitis versus peptic ulcer disease: The patient came to the hospital with chief complaint of abdominal pain localized at the level of the epigastrium. CT scan of the abdomen: No acute abdominal or pelvic finding. The pancreas is normal in appearance without focal lesions or abnormal enhancement. Lipase levels: 119. Follow-up trended lipase. Follow-up alcohol levels and lipid panel. Clear liquid diet. Pain control with [place] 5 mg q.4h PRN for moderate pain. [place] 10 mg q.4h PRN for severe pain. Ringer lactate at 150 mL/hour. Protonix 40 mg IV b.i.d. Simethicone. Substance use disorder: Alcohol use disorder: The patient states that he used to drink six pack a day, decreasing his alcohol consumption lately. He accepts that he uses methamphetamines. Follow-up U tox, etoh levels. Alcohol withdrawal protocol in place. Folic acid and thiamine IV. Nicotine patch on place. Code status: Full code DVT prophylaxis: SCDs Analgesia/sedation: [place]/Ativan. Line/tube: PIV GI prophylaxis: Protonix Nutrition: Clear liquid diet PT: Ordered Prognosis: Guarded Disposition: The patient will be admitted to ortho floor. Everett Moon Internal Medicine Resident [facility] Date of Service: Apr 14, 2025 Billing Provider: HAO RANDLE MD Common Visit Codes: [id number] INP/OBS CARE (HIGH) Secondary Visit Codes: [id number] CARE PLAN 30 MINUTES EVERETT MARS, RES Apr 14, 2025 19:36 HAO RANDLE MD Apr 17, 2025 08:14
[2025-04-14 19:47] LABS: CHOL/HDL RATIO 2.8 (0.00-4.99); CHOLESTEROL 160 MG/DL (0-200); ETHANOL < 10 MG/DL (<10); HDL CHOLESTEROL 57 MG/DL (35-60); LDL CHOLESTEROL 83 MG/DL (50-100); TRIGLYCERIDES 59 MG/DL (20-135)
[2025-04-14 19:48] LABS: HEMOGLOBIN A1C 5.3 % (4.5-6.2)
[2025-04-14 20:00] VITALS: RESP 18; O2SAT 99
[2025-04-14] MEDS: K and/or MAG REPLACEMENT MC SCH (20:00)
[2025-04-14 20:10] VITALS: BP 122/83; PULSE 53; RESP 16; TEMP 97.6; O2SAT 99
[2025-04-14] MEDS: morphine 2 MG/ML inj. syringe IV PRN (21:07)
[2025-04-14] MEDS: nicotine 21mg patch - 24 hr TD SCH (21:07)
[2025-04-14] MEDS: thiamine 100mg/ml 2ml inj. IV SCH (21:07)
[2025-04-14] MEDS: ringers solution, lacted 1,000 ML IV SCH (21:08)
[2025-04-14] MEDS: simethicone 125mg capsule PO SCH (21:11)
[2025-04-14 22:00] VITALS: BP 110/69; PULSE 52; RESP 16; TEMP 97.6; O2SAT 98
[2025-04-15 06:00] VITALS: BP 119/67; PULSE 62; RESP 18; TEMP 98; O2SAT 98
[2025-04-15 06:00] LABS: BASOPHILS # (AUTO) 0.1 X10'3 (0-0.2); BASOPHILS % (AUTO) 0.9 % (0-1); EOSINOPHILS # (AUTO) 0.1 X10'3 (0-0.9); HEMATOCRIT 40.2 % (42.0-52.0); HEMOGLOBIN 13.4 g/dl (14.0-17.9); LYMPHOCYTES # (AUTO) 2.1 X10'3 (1.1-4.8); LYMPHOCYTES % (AUTO) 29.6 % (21-51); MEAN CORPUSCULAR HEMOGLOBIN 28.3 PG (27.0-31.0); MEAN CORPUSCULAR HGB CONC 33.3 g/dL (33.0-36.5); MEAN CORPUSCULAR VOLUME 85.1 FL (78-98); MEAN PLATELET VOLUME 9.3 FL (7.4-10.4); MONOCYTES # (AUTO) 0.6 X10'3 (0-0.9); MONOCYTES % (AUTO) 8.9 % (2-12); NEUTROPHILS # (AUTO) 4.2 X10'3 (1.8-7.7); NEUTROPHILS % (AUTO) 58.6 % (42-75); PLATELET COUNT 173 X10'3 (140-440); RED BLOOD COUNT 4.72 X10'6 (4.70-6.10); WHITE BLOOD COUNT 7.2 X10'3 (4.5-11.0)
[2025-04-15 06:10] LABS: INR 1.1 INR; PROTHROMBIN TIME 11.1 SECONDS (9.0-12.0)
[2025-04-15 06:36] LABS: ALANINE AMINOTRANSFERASE 15 U/L (12-78); ALBUMIN 3.2 G/DL (3.4-5.0); ALBUMIN/GLOBULIN RATIO 1.2 (1.1-1.5); ALKALINE PHOSPHATASE 52 IU/L (46-116); ANION GAP 6 (8-16); ASPARTATE AMINO TRANSFERASE 9 U/L (10-37); BILIRUBIN,TOTAL 0.5 MG/DL (0.1-1.0); BLOOD UREA NITROGEN 7 MG/DL (7-18); BUN/CREATININE RATIO 11.9 (10.0-20.0); CALCIUM 8.4 MG/DL (8.5-10.1); CHLORIDE 106 MMOL/L (99-107); CHOL/HDL RATIO 2.9 (0.00-4.99); CHOLESTEROL 130 MG/DL (0-200); CREATININE 0.59 MG/DL (0.60-1.10); GLUCOSE 92 MG/DL (70-104); HDL CHOLESTEROL 45 MG/DL (35-60); LDL CHOLESTEROL 68 MG/DL (50-100); MAGNESIUM 1.8 MG/DL (1.5-2.4); POTASSIUM 4.2 MMOL/L (3.5-5.1); SODIUM 138 MMOL/L (135-145); TOTAL CARBON DIOXIDE 25.7 MMOL/L (24-32); TOTAL PROTEIN 5.8 G/DL (6.4-8.2); TRIGLYCERIDES 70 MG/DL (20-135); eCRCL 133 ML/MIN; eGFR > 90 ML/MIN
[2025-04-15 06:59] LABS: LIPASE > 375 U/L (16-77)
[2025-04-15] MEDS: magnesium hydroxide 30ml (MOM) UD suspension PO PRN (08:47)
[2025-04-15] MEDS: pantoprazole 40 MG vial IV SCH (09:02)
[2025-04-15] MEDS: HYDROcodone/acetaminophen 10/325mg tab PO PRN (09:04)
[2025-04-15] MEDS: multivitamins, therapeutics tablet PO SCH (09:05)
[2025-04-15] MEDS: folic acid 1mg/0.2ml inj IV SCH (09:05)
[2025-04-15] MEDS: nicotine 21mg patch - 24 hr TD SCH (10:54)
[2025-04-15 11:00] VITALS: BP 116/54; PULSE 49; RESP 17; TEMP 97; O2SAT 100
[2025-04-15] MEDS: LORazepam 1 MG tablet PO PRN (13:10)
--- NOTE | 2025-04-15 15:25 | PROGRESS NOTE- Residence ---
Progress Note - Resident Providers to CC Resident Creating Document: EVERETT MARS, RES ~ Antibiotic Timeout Antibiotic Ordered?: No Subjective The patient has been evaluated at the bedside. The patient reports significant improvement of abdominal pain. Objective Vital Signs Date Time Temp Pulse Resp B/P (MAP) Pulse Ox O2 Delivery O2 Flow Rate FiO2 04/15/25 11:00 97.0 49 17 116/54 (74) 100 Room Air 04/15/25 08:30 0.0 Physical exam: General: Well alert, well oriented, not confused, not agitated, not in acute distress, well cooperated during the physical. HEENT: Conjunctive are pink, sclerae clear, no icterus, pupil is equal in both sides, reactive to light, no ear discharge, no pharyngeal erythema or an edema. Neck: Supple, no JVD, no lymphadenopathy and thyromegaly. Chest: Equal air entry on both lungs, no additional sounds no rhonchi no wheezing at the moment. Cardiovascular: S1-S2 regular sinus rhythm and, regular rate, no gallops, no rubs, no murmurs Abdomen: No visible peristalsis, Bowel sounds present on auscultation, soft, moderate tenderness at the level of the epigastrium with deep palpation, no guarding, no rigidity. Extremities: No obvious deformities, no pitting edema bilaterally, capillary refill intact, peripheral pulsations are intact on both sides Central Nervous System: No focal neurological deficits, no motor or sensory weakness in all 4 extremities, could move all 4 extremities, 2+ deep tendon reflexes, negative Babinski. Musculoskeletal: No joint swelling, deformities, inflammations, and no scoliosis and back tenderness Skin: Warm and dry. Result Diagram: 04/15/25 0450 04/15/25 0450 Coagulation Studies Laboratory Tests Test 04/15/25 04:50 Prothrombin Time 11.1 SECONDS (9.0-12.0) INR International Normalized Ratio 1.1 INR Coagulation Comments Assessment Assessment 34-year-old male patient came to the hospital with chief complaint of abdominal pain. Plan Plan Abdominal pain: Acute alcoholic pancreatitis: The patient came to the hospital with chief complaint of abdominal pain localized at the level of the epigastrium. CT scan of the abdomen: No acute abdominal or pelvic finding. The pancreas is normal in appearance without focal lesions or abnormal enhancement. Lipase levels: 119. Follow-up trended lipase. Follow-up alcohol levels and lipid panel. Clear liquid diet. Pain control with [place] 5 mg q.4h PRN for moderate pain. [place] 10 mg q.4h PRN for severe pain. Ringer lactate at 150 mL/hour. Protonix 40 mg IV b.i.d. Simethicone. 04/15/2025: Lipase levels > 375. Patient reports improvement of symptoms. Continue ringer lactate at 150 mL/hour. Protonix 40 mg IV b.i.d.. Simethicone as needed. Lipid panel within reference range. Triglycerides level 70. Advance diet to regular diet. Substance use disorder: Alcohol use disorder: The patient states that he used to drink six pack a day, decreasing his alcohol consumption lately. He accepts that he uses methamphetamines. ETOH levels < 10 Continue Alcohol withdrawal protocol. Folic acid and thiamine IV. Nicotine patch 21 mg daily. Code status: Full code DVT prophylaxis: SCDs Analgesia/sedation: [place]/Ativan. Line/tube: PIV GI prophylaxis: Protonix Nutrition: Regular diet. PT: Ordered Prognosis: Guarded Disposition: We are advancing diet. Continue medical management. Anticipated discharge tomorrow. Everett Moon Internal Medicine Resident [facility] Date of Service: Apr 15, 2025 Billing Provider: HAO RANDLE MD Common Visit Codes: [id number] INP/OBS CARE(HIGH) EVERETT MARS, RES Apr 15, 2025 15:25 HAO RANDLE MD Apr 17, 2025 08:14
[2025-04-15 18:30] VITALS: BP 138/81; PULSE 55; RESP 17; TEMP 98.1; O2SAT 98
[2025-04-15 20:00] VITALS: RESP 16; O2SAT 99
[2025-04-16] MEDS: sennosides 8.6mg tablet PO SCH (03:58)
[2025-04-16 05:03] LABS: BASOPHILS % (AUTO) 0.7 % (0-1); EOSINOPHILS # (AUTO) 0.1 X10'3 (0-0.9); EOSINOPHILS % (AUTO) 1.9 % (0-6); HEMATOCRIT 41.5 % (42.0-52.0); LYMPHOCYTES # (AUTO) 2.2 X10'3 (1.1-4.8); LYMPHOCYTES % (AUTO) 32.5 % (21-51); MEAN CORPUSCULAR HEMOGLOBIN 28.4 PG (27.0-31.0); MEAN CORPUSCULAR HGB CONC 33.6 g/dL (33.0-36.5); MEAN CORPUSCULAR VOLUME 84.6 FL (78-98); MEAN PLATELET VOLUME 8.7 FL (7.4-10.4); MONOCYTES # (AUTO) 0.7 X10'3 (0-0.9); MONOCYTES % (AUTO) 9.7 % (2-12); NEUTROPHILS # (AUTO) 3.7 X10'3 (1.8-7.7); NEUTROPHILS % (AUTO) 55.2 % (42-75); PLATELET COUNT 193 X10'3 (140-440); RED BLOOD COUNT 4.91 X10'6 (4.70-6.10); RED CELL DISTRIBUTION WIDTH 13.9 % (11.5-14.5); WHITE BLOOD COUNT 6.8 X10'3 (4.5-11.0)
[2025-04-16 05:18] LABS: INR 1.1 INR; PROTHROMBIN TIME 10.8 SECONDS (9.0-12.0)
[2025-04-16 05:26] LABS: ALANINE AMINOTRANSFERASE 15 U/L (12-78); ALBUMIN 3.7 G/DL (3.4-5.0); ALBUMIN/GLOBULIN RATIO 1.4 (1.1-1.5); ALKALINE PHOSPHATASE 53 IU/L (46-116); ANION GAP 4 (8-16); ASPARTATE AMINO TRANSFERASE 19 U/L (10-37); BILIRUBIN,TOTAL 0.3 MG/DL (0.1-1.0); BLOOD UREA NITROGEN 8 MG/DL (7-18); BUN/CREATININE RATIO 9.2 (10.0-20.0); CALCIUM 8.9 MG/DL (8.5-10.1); CHLORIDE 104 MMOL/L (99-107); CREATININE 0.87 MG/DL (0.60-1.10); GLUCOSE 120 MG/DL (70-104); LIPASE 46 U/L (16-77); POTASSIUM 4.6 MMOL/L (3.5-5.1); SODIUM 140 MMOL/L (135-145); TOTAL PROTEIN 6.4 G/DL (6.4-8.2); eCRCL 90 ML/MIN; eGFR > 90 ML/MIN
[2025-04-16 06:00] VITALS: BP 132/79; PULSE 54; RESP 13; TEMP 97.9; O2SAT 97
--- NOTE | 2025-04-16 16:24 | DISCHARGE SUMMARY-Residence ---
Discharge Summary Providers to CC Resident Creating Document: ELAYNE MARS, RES ~ Discharge Summary Admission Diagnosis: ABDOMINAL PAIN Hospital Course DATE OF ADMISSION: 04/14/2025 DATE OF DISCHARGE: 04/16/2025 Discharge Diagnosis\Comment: Acute alcoholic pancreatitis Substance use disorder Alcohol use disorder Operations\Procedures: None Consultants: None Complications: None Condition on DC: Stable Discharge Summary: HPI: PCP: JOHN. 34 years old male patient with past medical history of pancreatitis, substance and alcohol use disorder, came to the hospital with chief complaint of abdominal pain. The patient states that his abdominal pain gradually started and progressed since in the last two weeks. The patient reports that during the last three days his pain was getting worse, scaly need as 9/10 in intensity localized in the level of the epigastrium without radiation, with mild improvement when leaning to the side. As per patient the pain is worse after eat any type of foot. The patient currently denies any chest pain, shortness of breath, urinary or intestinal symptoms. Hospital course: 34 years old male patient came to the hospital with chief complaint of abdominal pain. The patient was evidenced with acute pancreatitis, the patient stated that he was drinking alcohol during the last week. The patient was started on aggressive hydration based on ringer lactate at a rate of 150 mL/hour. Pain con trol with morphine and [place] was started. Due to his alcohol consumption the patient was also placed on alcohol withdrawal protocol. director of outpatient services and substance use navigator was consulted, resources were given to the patient. Upon the next day the patient reports significant improvement of abdominal pain, tolerating clear liquid diet. The patient was advanced to regular diet. The patient initially was planned to be discharged on 04/16/2025, the patient left AMA before discharge. Discharge course: The patient left AMA. *Problems/Diagnosis: (1) Alcohol use disorder Status: Chronic (2) Substance use disorder Status: Chronic (3) Acute alcoholic pancreatitis Status: Acute Total Time Spent on D/C: > 30 Minutes Date of Service: Apr 16, 2025 Billing Provider: HAO RANDLE MD Common Visit Codes: 79873-BJP/OBS DISCH DAY >30min Problem Qualifiers (1) Acute alcoholic pancreatitis: Acute pancreatitis complication: no infection or necrosis Qualified Codes: K85.20 - Alcohol induced acute pancreatitis without necrosis or infection ELAYNE MARS, RES Apr 16, 2025 16:24 HAO RANDLE MD Apr 17, 2025 08:15
[2025-04-18] MEDS ORDERED: thiamine 100mg tablet PO SCH (08:00)
[2025-04-19] MEDS ORDERED: folic acid 1mg tablet PO SCH (08:00)
== END 2025-04-16 09:38 | disposition left against medical advice (07) | DRG 282 ==
LOC: ER 13:52 → ED HOLD 17:22 → SUR 3N 20:20
PROVIDERS: ADMIT Internal Medicine; ATTEND Internal Medicine
PROC: BW211ZZ Computerized Tomography (CT Scan) of Abdomen and Pelvis using Low Osmolar Contrast (ICD-10-PCS; principal; 2025-04-14)
DX: K85.20 Alcohol induced acute pancreatitis without necrosis or infection (principal); F10.90 Alcohol use, unspecified, uncomplicated; F20.9 Schizophrenia, unspecified; Z53.21 Procedure and treatment not carried out due to patient leaving prior to being seen by health care provider; F41.9 Anxiety disorder, unspecified; K86.1 Other chronic pancreatitis; Z87.11 Personal history of peptic ulcer disease; Z88.5 Allergy status to narcotic agent; Z91.018 Allergy to other foods; Z59.00 Homelessness unspecified
CPT/HCPCS: 36415; 74018; 74177; 80053; 80061; 80320; 81003; 82948; 83036; 83690; 83735; 85025; 85610; 87081; 96361; 96374; 96375; 99285; A6258; G0378; J2060; J2270; J2405; J2470; J3411; J3490; J7030; J7120; Q9967

== ENCOUNTER 2025-05-05 21:19 | Emergency (ER) | payer MEDICAID ==
[~2025-05-05] VITALS: Ht 180.3 cm; Wt 60.0 kg
[~2025-05-05 21:19] MED LIST changes: -IBUP-1986 PO; -KETO10TA2 PO; +NO HOME MEDS
[2025-05-05 21:22] VITALS: BP 150/89; PULSE 67; RESP 20; TEMP 98; O2SAT 97
== END 2025-05-06 00:11 | disposition left against medical advice (07) ==
LOC: ER 21:20
DX: M79.89 Other specified soft tissue disorders (principal); Z88.5 Allergy status to narcotic agent; Z88.8 Allergy status to other drugs, medicaments and biological substances; Z53.21 Procedure and treatment not carried out due to patient leaving prior to being seen by health care provider

== ENCOUNTER 2025-05-13 23:48 | Emergency (ER) | payer MEDICAID ==
[~2025-05-13] VITALS: Ht 180.3 cm; Wt 53.2 kg
--- NOTE | 2025-05-14 02:00 | Physician Documentation ---
History of Present Illness ~ Chief Complaint: Back Pain Stated Complaint: RIGHT SIDE PAIN Time Seen by MD: 01:57 Primary Medical Doctor: JOHN Mode of Arrival: POV HPI Patient presents to the emergency room with exacerbation of what he states is his sciatica. No traumas or falls. He does not have a primary care provider. He has had nothing for his pain. He states this has happened before and they usually give him a Toradol shot along with steroids. He denies any bladder or bowel incontinence. Medication Reconciliation Allergies: Coded Allergies: codeine (Verified Allergy, Unknown, 01/27/25) grapefruit (Unverified Allergy, Unknown, 11/15/24) quetiapine fumarate (Unverified Allergy, Unknown, 01/27/25) Uncoded Allergies: JALAPENO (Allergy, Unknown, 08/06/15) Miscellaneous Medications Home Med List (No Home Medications), (Reported) Past Medical History Past Medical History: Gastritis, Pancreatitis, Peptic Ulcer Disease, Chronic Back Pain, Anxiety, Schizophrenia Past Surgical History: no surgical history Alcohol Use: Sober Drug Use: marijuana, methamphetamine Lives with: Alone Lives In: Homeless Occupation: unemployed Review of Systems ROS All review of systems negative except as per HPI Physical Exam Physical Exam Vital Signs: Temperature: 98.2, Source: Temporal, Heart Rate: 62, Respiratory Rate: 18, BP: 115/68, Pulse Oximetry: 100, Weight: 53.250 Oxygen Flow Rate: 0 Physical Exam General: Patient is awake, alert, oriented x4 in no acute distress Head: Normocephalic and atraumatic. Eyes: Conjunctival normal. EOMI. PERRL. ENT: Mucous membranes moist. Neck: Supple, trachea is midline. Chest: Clear to auscultation bilaterally without rales, rhonchi, or wheezes. There is no accessory muscle use or retractions. Cardiac: RRR without murmurs, gallops, or rubs. Back: No midline spinal or CVA tenderness Neuro: Cranial nerves II-XII grossly intact. No focal neuro deficits. Patient ambulating without difficulty. Progress Results/Orders Results/Orders Vital Signs 05/13/25 05/14/25 05/14/25 23:56 01:26 01:29 Temp 98.2 Pulse 110 62 Resp 16 18 B/P (MAP) 116/73 115/68 (84) Pulse Ox 97 100 O2 Flow Rate 0 Medical Decision Making Findings Patient presents to the emergency room for exacerbation of back pain. Differentials include but are not limited to radiculopathy musculoskeletal pain fractures dislocations cauda equina spinal abscess. No fevers and given patient's previous history of similar symptoms I do not feel emergent labs or imaging is necessary. We will empirically treat him. Departure Disposition: HOME / SELF CARE / HOMELESS Impression: Primary Impression: Lumbago Condition: Stable Discharge Instructions: Acute Back Pain, Adult Additional Instructions: You can take ibuprofen and Tylenol together for your pain. Prescriptions Prednisone* (Prednisone*) 20 Mg Tablet 1 TAB PO DAILY for 5 Days, #5 TAB Prov: CALIN HORN MD 05/14/25 Acetaminophen (Tylenol Extra Strength) 500 Mg Tablet 2 TAB PO Q6H PRN PRN for pain or fever for 3 Days, #30 TAB Prov: ACLIN HORN MD 05/14/25 Ibuprofen* (Motrin*) 400 Mg Tablet 800 MG PO Q8H, #30 TAB Prov: CALIN HORN MD 05/14/25 Education Educated: Patient Educated regarding: diagnosis, treatment, need for follow up Signature Scribe Signature: No scribe Attestation: The note accurately reflects work and decisions made by me.Calin Horn MD 05/14/25 02:17 CALIN HORN MD May 14, 2025 02:00
[2025-05-14] MEDS ORDERED: PRED20TA PO (02:16)
[2025-05-14] MEDS ORDERED: IBUP-1984 PO (02:16)
[2025-05-14] MEDS ORDERED: ACET-2615 PO (02:16)
[2025-05-14] MEDS: ketorolac trometh 15mg/ml vial 15 MG/ML ML IM ONE (02:24)
[2025-05-14 02:31] VITALS: BP 107/67; PULSE 87; RESP 15; TEMP 98.2; O2SAT 100
== END 2025-05-14 02:30 | disposition home or self-care (01) ==
LOC: ER 23:48
DX: M54.40 Lumbago with sciatica, unspecified side (principal); F20.9 Schizophrenia, unspecified; F41.9 Anxiety disorder, unspecified; F12.90 Cannabis use, unspecified, uncomplicated; F15.90 Other stimulant use, unspecified, uncomplicated; Z88.5 Allergy status to narcotic agent; Z87.19 Personal history of other diseases of the digestive system; Z88.8 Allergy status to other drugs, medicaments and biological substances; Z56.0 Unemployment, unspecified; Z59.00 Homelessness unspecified; Z60.2 Problems related to living alone; Z79.899 Other long term (current) drug therapy
CPT/HCPCS: 96372; 99283; J1885

== ENCOUNTER 2025-10-14 23:30 | Emergency (ER) | payer MEDICAID ==
[~2025-10-14] VITALS: Ht 175.3 cm; Wt 58.2 kg
[2025-10-14 23:54] VITALS: BP 107/66; PULSE 75; RESP 16; O2SAT 98
[2025-10-15] MEDS ORDERED: IBUP-1986 PO (00:11)
[2025-10-15] MEDS ORDERED: LIDO-52 TOP (00:11)
--- NOTE | 2025-10-15 00:11 | Physician Documentation ---
History of Present Illness ~ Chief Complaint: Hip pain Stated Complaint: HIP PAIN Time Seen by MD: 00:07 Primary Medical Doctor: [facility] HPI This is a 35-year-old male with a history of left-sided sciatica who presents with seven days of increased sciatica symptoms after you reports walking in his increased amount. Patient reports no other acute symptoms or concerns. Patient reports no new weakness or numbness in legs, no loss of bowel or bladder control, no saddle paresthesias, no recent trauma, no recent fever, no recent unexpected weight loss, no history of IV drug use, cancer, tuberculosis, or chronic steroid use. Medication Reconciliation Allergies: Coded Allergies: codeine (Verified Allergy, Unknown, 01/27/25) grapefruit (Unverified Allergy, Unknown, 11/15/24) quetiapine fumarate (Unverified Allergy, Unknown, 01/27/25) Uncoded Allergies: JALAPENO (Allergy, Unknown, 08/06/15) Scheduled Ibuprofen (Ibuprofen), 1 TAB PO Q8H Lidocaine (Lidoderm), 1 PATCH TOP DAILY Miscellaneous Medications Home Med List (No Home Medications), (Reported) Past Medical History Past Medical History: Gastritis, Pancreatitis, Peptic Ulcer Disease, Chronic Back Pain, Anxiety, Schizophrenia Past Surgical History: no surgical history Alcohol Use: Sober Drug Use: marijuana, methamphetamine Lives with: Alone Lives In: Homeless Occupation: unemployed Review of Systems ROS As stated above in the HPI, otherwise all systems are reviewed and negative. Physical Exam Physical Exam Vital Signs: Temperature: 98.0, Heart Rate: 75, Respiratory Rate: 16, BP: 107/66, Pulse Oximetry: 98, Weight: 58.200 Oxygen Flow Rate: 0 Physical Exam VITALS: Reviewed and as above. GENERAL: Alert, nontoxic appearing, no apparent distress. RESPIRATORY: No increased work of breathing, no respiratory distress, speaking in full clear sentences BACK: No central spinal tenderness, no step-offs, no crepitus NEURO: Walking with steady unassisted gait Progress Results/Orders Results/Orders Completed Orders - JUAN DIAZ [employer] Ketorolac Trometh 15mg/Ml Vial (Toradol (10/15/25 00:15) Lidocaine 5% Patch (Lidoderm 5% Patch) (10/15/25 00:15) Vital Signs 10/14/25 10/15/25 23:54 01:17 Temp 98.0 98.0 Pulse 75 Resp 16 B/P (MAP) 107/66 Pulse Ox 98 O2 Flow Rate 0 Medical Decision Making Additional information obtaine: N/A Findings This is an otherwise, well appearing 35-year-old male with a history of left- sided sciatica presenting with back pain radiating to left thigh. Patients does not have any high-risk features on history trauma, IVDA, cancer, significant weight loss or history of TB, and the patient has a normal neurologic exam without fever, severe or progressive neurologic deficits, new or worsening urinary retention, urinary/stool incontinence or decreased perineal sensation; therefore imaging was not indicated in the ED. I doubt spinal fracture, epidural hematoma, epidural abscess, unstable spinal pathology, emergent renal or aortic pathology, or spinal cord compression. Upon discharge, the patients pain was controlled, and the patient was ambulatory without a risk of falling. Return precautions were discussed including worsening pain, new/worsening weakness/numbness, difficulty urinating, or incontinence. Differential Dx:Considerations: Appendicitis, Bowel obstruction, Cholelithiasis, Cholangitis, DJD, Fracture, Musculoskeletal pain, Pancreatitis, Pyelonephritis, Strain, Urinary obstruction, Urolithiasis, Renal infarction, Urinary tract infection, Other (Cauda equina) Departure Time of Disposition: 00:09 Disposition: 01 HOME / SELF CARE / HOMELESS Impression: Primary Impression: Sciatica Qualified Codes: M54.32 - Sciatica, left side Condition: Improved Discharge Instructions: Sciatica Additional Instructions: Please use the medications as prescribed. Please follow up with your primary care provider in the next few days. Please return to the emergency department for any new or worsening concerning symptoms. Referrals: NO PRIMARY CARE PROVIDER (PCP) Prescriptions Lidocaine (Lidoderm) 5 % Adh..patch 1 PATCH TOP DAILY for 30 Days, #10 PATCH 0 Refills may wear up to 12 hours Prov: JUAN DIAZ 10/15/25 Ibuprofen (Ibuprofen) 800 Mg Tablet 1 TAB PO Q8H for pain for 10 Days, #30 TAB 0 Refills Prov: JUAN DIAZ 10/15/25 Education Educated: Patient Educated regarding: diagnosis, treatment, prognosis, need for follow up Signature Scribe Signature: No scribe Attestation: The note accurately reflects work and decisions made by me.ZORAIDA Lloyd 10/15/25 01:15 JUAN DIAZP Oct 15, 2025 00:11
[2025-10-15] MEDS: ketorolac trometh 15mg/ml vial 15 MG/ML ML IM ONE (01:12)
[2025-10-15 01:17] VITALS: TEMP 98
== END 2025-10-15 01:18 | disposition home or self-care (01) ==
LOC: ER 23:31
DX: M54.32 Sciatica, left side (principal); F20.9 Schizophrenia, unspecified; F41.9 Anxiety disorder, unspecified; G89.29 Other chronic pain; F12.90 Cannabis use, unspecified, uncomplicated; F15.90 Other stimulant use, unspecified, uncomplicated; Z87.11 Personal history of peptic ulcer disease; Z87.19 Personal history of other diseases of the digestive system; Z88.5 Allergy status to narcotic agent; Z91.018 Allergy to other foods; Z88.8 Allergy status to other drugs, medicaments and biological substances; Z79.899 Other long term (current) drug therapy; Z59.00 Homelessness unspecified; Z56.0 Unemployment, unspecified; Z60.2 Problems related to living alone
CPT/HCPCS: 96372; 99283; J1885

== ENCOUNTER 2025-10-20 01:26 | Emergency (ER) | payer MEDICAID ==
[~2025-10-20 01:26] MED LIST changes: +IBUP-1986 PO; +LIDO-52 TOP
[2025-10-20 01:34] VITALS: BP 119/74; PULSE 91; RESP 20; TEMP 97.8; O2SAT 97
== END 2025-10-20 04:22 | disposition left against medical advice (07) ==
LOC: ER 01:27
DX: M25.512 Pain in left shoulder (principal); Z88.8 Allergy status to other drugs, medicaments and biological substances; Z91.018 Allergy to other foods; Z53.21 Procedure and treatment not carried out due to patient leaving prior to being seen by health care provider
CPT/HCPCS: 99281